=== PATIENT | female | born 1945 | race Caucasian/White ===

== ENCOUNTER 2017-12-15 06:08 | Day surgery (SDC) | payer MEDICARE ==
[~2017-12-15 06:08] MED LIST: Lactated Ringers 1,000 ML IV SCH
[2017-12-15] MEDS ORDERED: Ketamine HCl 50 MG/ML IJ ONE (06:09)
[2017-12-15] MEDS ORDERED: DIPRIVAN 200 MG/20 ML IV ONE (06:09)
[2017-12-15] MEDS ORDERED: Lactated Ringers 1,000 ML IV ONE (06:43)
[2017-12-15] MEDS ORDERED: Xopenex 1.25 MG/0.5 ML UD NEBULE IH ONE (06:54)
[2017-12-15 09:39] VITALS: BP 129/61; PULSE 84; O2SAT 94
--- NOTE | 2017-12-15 14:16 | OP ---
SURGERY DATE/TIME: 12/15/2017729 PREOPERATIVE DIAGNOSIS: Screening exam. POSTOPERATIVE DIAGNOSIS: Chronic sigmoid colitis. PROCEDURE: Colonoscopy. SURGEON: Dr. Milian. ANESTHESIA: MAC. Medications given by anesthesia department. HISTORY: The patient is a 72 year-old white female presenting now for screening colonoscopy. She reports she had a colonoscopy several years ago, more than ten. She was unsure of exactly how long. She reports nothing was found at that time. She has been having no problems. She was felt the need to have screening colonoscopy. The patient was appraised of the risks of the procedure including the risk of perforation, phlebitis, untoward reaction to medication, bleeding and missed lesions. The patient verbalized her understanding and desired to have the procedure performed. DESCRIPTION OF PROCEDURE: The patient was given the medications by the anesthesia department. She had continuous pulse oximetry, ECG monitoring, intermittent blood pressure monitoring and tidal CO2 monitoring during the examination. She was placed in the left lateral decubitus position. A digital rectal examination was performed and revealed normal anal sphincter tone and no masses. The flexible Olympus pediatric colonoscope was used to intubate the rectum. A view of the colon was developed sequentially to the cecum. Upon insertion and withdrawal, it was noted to be a somewhat flattened and narrowed area in the sigmoid colon which was inflamed. No polyps or lesions were otherwise noted however. Upon insertion and withdrawal including retroflex view in the rectum, no polyps were noted. The scope was removed from the patient who tolerated the procedure well and was sent back to OP recovery in good condition. The prep was noted to be fair.
== END 2017-12-15 09:15 | disposition home or self-care (01) ==
LOC: SDC 06:08
PROVIDERS: ATTEND Family Medicine
PROC: 0DJD8ZZ Inspection of Lower Intestinal Tract, Via Natural or Artificial Opening Endoscopic (ICD-10-PCS; principal; 2017-12-15)
DX: Z12.11 Encounter for screening for malignant neoplasm of colon (principal); K52.9 Noninfective gastroenteritis and colitis, unspecified; I10 Essential (primary) hypertension; Z86.73 Personal history of transient ischemic attack (TIA), and cerebral infarction without residual deficits
CPT/HCPCS: 00812; 99100; J2704; A9270-GY

== ENCOUNTER 2019-07-24 09:55 | Emergency (ER) | payer MEDICARE ==
[2019-07-24 10:24] VITALS: O2SAT 97
[2019-07-24] MEDS ORDERED: Sodium Chloride 0.9% 1000 ML 1,000 ML IV SCH (10:30)
--- NOTE | 2019-07-24 10:32 | ERPHSYRPT ---
- History of Present Illness Time Seen by Provider: 07/24/19 10:28 Source: patient Exam Limitations: no limitations Patient Subjective Stated Complaint: pt reports left leg pain for 3-4 days, states pain increased last evening and she was unable to get to bed herself. pt reports she normally has a steady gait and does not require assistance ambulating. 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 Triage Nursing Assessment: pt is aox3, pupils perrl, afebrile, resps easy and non labored, radial pulses strong and equal, cap refill < 3 seconds, pedal pulses strong and equal, pt sensation intact, edema noted to bilat lower extremities with increased edema to the left lower leg. skin is intact. pain localized to the left posterior knee. no obvious injury or deformity noted. Physician History: Ms. Santiago is a 73 years old female reports left leg pain for 3-4 days, states pain increased last evening and she was unable to get to bed herself. pt reports she normally has a steady gait and does not require assistance ambulating. 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 Patient is taking plavix started after having stroke 3 years ago Timing/Duration: day(s) (3-4 days) Associated Symptoms: weakness Allergies/Adverse Reactions: Sulfa (Sulfonamide Antibiotics) Allergy (Severe, Verified 07/24/19 10:24) Rash morphine Adverse Reaction (Severe, Verified 07/24/19 10:24) Vomiting Home Medications: Clopidogrel Bisulfate 75 mg [PLAVIX 75 MG Tablet] 75 mg PO DAILY 09/19/16 [History] Lisinopril 5 mg [Zestril 5 MG] 5 mg PO DAILY 09/19/16 [History] raNITIdine HCl [Zantac] 150 mg PO BID 09/19/16 [History] Calcium/Mag Oxide/Vitamin D3 [Coral Calcium 1,000 mg Cap] 1 each PO DAILY [History] Diphenhydramine HCl 25 mg [Benadryl 25 mg Capsule] 25 mg PO QID 11/12/17 [ History] Ginkgo Biloba 240 mg PO DAILY 12/27/17 [History] Loratadine/Pseudoephedrine [Allergy Relief D 12-Hour Tab] 1 each PO BID [History] Escitalopram Oxalate [Lexapro] 10 mg PO DAILY 12/15/17 [History] Atorvastatin Calcium [Lipitor 20MG Tablet] 20 mg PO DAILY 07/24/19 [History] Hx Tetanus, Diphtheria Vaccination/Date Given: Yes Hx Influenza Vaccination/Date Given: No Hx Pneumococcal Vaccination/Date Given: No Immunizations Up to Date: Yes - Review of Systems Constitutional: Weakness, No Fever, No Chills Eyes: No Symptoms Ears, Nose, & Throat: No Symptoms Respiratory: No Cough, No Dyspnea Cardiac: No Chest Pain, No Edema, No Syncope Abdominal/Gastrointestinal: No Abdominal Pain, No Nausea, No Vomiting, No Diarrhea Genitourinary Symptoms: No Dysuria Musculoskeletal: Other (left calf tenderness, difficulty in walking on left side (affected side due to stroke)), No Back Pain, No Neck Pain Skin: No Rash Neurological: Focal Weakness, No Dizziness, No Sensory Changes Psychological: No Symptoms Endocrine: No Symptoms All Other Systems: Reviewed and Negative - Past Medical History Pertinent Past Medical History: Yes Neurological History: Stroke ENT History: No Pertinent History Cardiac History: Hypertension Respiratory History: COPD Endocrine Medical History: No Pertinent History Musculoskeletal History: Other GI Medical History: GERD, Gallbladder Disease History: No Pertinent History Psycho-Social History: Depression Female Reproductive Disorders: Abnormal Uterine Bleeding Other Medical History: states stroke 2016 - Past Surgical History Past Surgical History: Yes Neuro Surgical History: No Pertinent History Cardiac: No Pertinent History Respiratory: No Pertinent History Gastrointestinal: Cholecystectomy, Hernia Repair, Other Genitourinary: Other Musculoskeletal: No Pertinent History Female Surgical History: Hysterectomy, Tubal Ligation Other Surgical History: stomach stapled, bladder tuck - Social History Smoking Status: Heavy tobacco smoker How long have you smoked: 22years Exposure to second hand smoke: No Drug Use: none Patient Lives Alone: Yes - Female History Hx Now: No - Nursing Vital Signs Nursing Vital Signs: Initial Vital Signs Temperature 97.8 F 07/24/19 09:57 Pulse Rate 82 07/24/19 09:57 Respiratory Rate 20 07/24/19 09:57 Blood Pressure 147/60 07/24/19 09:57 O2 Sat by Pulse Oximetry 97 07/24/19 09:57 Pain Scale Pain Intensity 8 - Physical Exam General Appearance: no apparent distress, alert Eye Exam: PERRL/EOMI, eyes nml inspection Ears, Nose, Throat Exam: normal ENT inspection, TMs normal, pharynx normal, moist mucous membranes Neck Exam: normal inspection, non-tender, supple, full range of motion Respiratory Exam: normal breath sounds, lungs clear, No respiratory distress Cardiovascular Exam: regular rate/rhythm, normal heart sounds, normal peripheral pulses Gastrointestinal/Abdomen Exam: soft, normal bowel sounds, No tenderness, No mass Back Exam: normal inspection, normal range of motion, No CVA tenderness, No vertebral tenderness Extremity Exam: normal inspection, normal range of motion, pelvis stable Neurologic Exam: alert, oriented x 3, cooperative, normal mood/affect, nml cerebellar function, nml station & gait, sensation nml, No motor deficits Skin Exam: normal color, warm, dry, No rash Lymphatic Exam: No adenopathy SpO2 Interpretation: normal SpO2: 97 O2 Delivery: Room Air - Course Nursing assessment & vital signs reviewed: Yes EKG Interpreted by Me: Sinus Rhythm Ordered Tests: Active Orders 24 hr Category Date Time Status Ict Help Desk Officer STAT Care 07/24/19 10:22 Active EKG-ER Only STAT Care 07/24/19 10:21 Active VENOUS UNILAT/LIMITED EXTREMIT [US] Stat Exams 07/24/19 11:22 Taken CBC W DIFF Stat Lab 07/24/19 10:32 Completed CMP Stat Lab 07/24/19 10:32 Completed D-DIMER QUANTITATION Stat Lab 07/24/19 10:32 Completed Lactic Acid Stat Lab 07/24/19 10:21 Completed MAGNESIUM Stat Lab 07/24/19 10:32 Completed Medication Summary Generic Name Dose Route Start Last Admin Trade Name Lexy PRN Reason Stop Dose Admin Sodium Chloride 1,000 mls @ 50 mls/hr 07/24/19 10:30 07/24/19 10:40 Sodium Chloride 0.9% 1000 Ml IV 08/23/19 10:29 50 mls/hr .Q20H BRITTENE Administration Lab/Rad Data: Laboratory Result Diagrams 07/24/19 10:32 07/24/19 10:32 Laboratory Results 07/24/19 07/24/19 07/24/19 Range/Units 10:32 10:32 10:32 WBC 9.2 (4.0-10.5) K/mm3 RBC 4.98 (4.1-5.4) M/mm3 Hgb 14.1 (12.0-16.0) gm/dl Hct 43.2 (35-47) % MCV 86.7 (78-100) fl MCH 28.3 (26-32) pg MCHC 32.6 (32-36) g/dl RDW 15.7 H (11.5-14.0) % Plt Count 181 (150-450) K/mm3 MPV 9.8 H (6-9.5) fl Gran % 62.0 (36.0-66.0) % Eos # (Auto) 0.21 (0-0.5) Absolute Lymphs (auto) 2.26 (1.0-4.6) Absolute Monos (auto) 0.97 (0.0-1.3) Lymphocytes % 24.6 (24.0-44.0) % Monocytes % 10.6 (0.0-12.0) % Eosinophils % 2.3 (0.00-5.0) % Basophils % 0.5 (0.0-0.4) % Absolute Granulocytes 5.70 (1.4-6.9) Basophils # 0.05 (0-0.4) D-Dimer 380 (215-500) ng/mL Sodium 141 (137-145) mmol/L Potassium 4.4 (3.5-5.1) mmol/L Chloride 108 H (98-107) mmol/L Carbon Dioxide 26 (22-30) mmol/L Anion Gap 11.3 (5-15) MEQ/L BUN 14 (7-17) mg/dL Creatinine 0.89 (0.52-1.04) mg/dL Estimated GFR > 60.0 ML/MIN Glucose 78 (74-106) mg/dL Lactic Acid (0.4-2.0) Calcium 9.8 (8.4-10.2) mg/dL Magnesium 2.2 (1.6-2.3) mg/dL Total Bilirubin 0.80 (0.2-1.3) mg/dL AST 24 (14-36) U/L ALT 11 (0-35) U/L Alkaline Phosphatase 82 (38-126) U/L Serum Total Protein 7.0 (6.3-8.2) g/dL Albumin 3.9 (3.5-5.0) g/dL 07/24/19 Range/Units 10:21 WBC (4.0-10.5) K/mm3 RBC (4.1-5.4) M/mm3 Hgb (12.0-16.0) gm/dl Hct (35-47) % MCV (78-100) fl MCH (26-32) pg MCHC (32-36) g/dl RDW (11.5-14.0) % Plt Count (150-450) K/mm3 MPV (6-9.5) fl Gran % (36.0-66.0) % Eos # (Auto) (0-0.5) Absolute Lymphs (auto) (1.0-4.6) Absolute Monos (auto) (0.0-1.3) Lymphocytes % (24.0-44.0) % Monocytes % (0.0-12.0) % Eosinophils % (0.00-5.0) % Basophils % (0.0-0.4) % Absolute Granulocytes (1.4-6.9) Basophils # (0-0.4) D-Dimer (215-500) ng/mL Sodium (137-145) mmol/L Potassium (3.5-5.1) mmol/L Chloride (98-107) mmol/L Carbon Dioxide (22-30) mmol/L Anion Gap (5-15) MEQ/L BUN (7-17) mg/dL Creatinine (0.52-1.04) mg/dL Estimated GFR ML/MIN Glucose (74-106) mg/dL Lactic Acid 1.1 (0.4-2.0) Calcium (8.4-10.2) mg/dL Magnesium (1.6-2.3) mg/dL Total Bilirubin (0.2-1.3) mg/dL AST (14-36) U/L ALT (0-35) U/L Alkaline Phosphatase (38-126) U/L Serum Total Protein (6.3-8.2) g/dL Albumin (3.5-5.0) g/dL Patient left lower extremity venous duplex ultrasound is negative for deep vein thrombosis. All able blood test are also within normal range. - Progress Progress: improved Counseled pt/family regarding: lab results, diagnosis, need for follow-up, rad results - Departure Departure Disposition: Home Clinical Impression: Pain of left calf, History of blood clots Condition: Stable Critical Care Time: Yes Critical Care Time(excluding separately billable procedures): Critical 30-74 mins Referrals: SAVANAH CANCHOLA [Primary Care Provider] - Additional Instructions: Discharge/Care Plan HUNTER SANTIAGO was seen on 07/24/19 in the Emergency Room. The patient was counseled regarding Diagnosis,Lab results, Imaging studies, need for follow up and when to return to the Emergency Room. Prescriptions given: Discharge Note I have spoken with the patient and/or caregivers. I have explained the patient' s condition, diagnosis and treatment plan based on the information available to me at this time. I have answered the patient's and/or caregiver's questions and addressed any concerns. The patient and/or caregivers have as good understanding of the patient's diagnosis, condition and treatment plan as can be expected at this point. The vital signs have been stable. The patient's condition is stable and appropriate for discharge from the emergency department. The patient will pursue further outpatient evaluation with the primary care physician or other designated or consulting physician as outlined in the discharge instructions. The patient and/or caregivers are agreeable to this plan of care and follow-up instructions have been explained in detail. The patient and/or caregivers have received these instruction. The patient/and or caregivers are aware that any significant change in condition or worsening of symptoms should prompt an immediate return to this or the closest emergency department or call 911. HUNTER SANTIAGO was seen on 07/24/19 n the Emergency Room. At that time you were treated for an emergent condition, during your visit Laboratory, Radiology and/or other procedures may have been ordered. It is very important that you follow-up with your Primary Care Physician SAVANAH CANCHOLA within the next 24-48 hours to review your Emergency Room visit and the final results of testing that was ordered. Some test results such as Urine Cultures, Blood Cultures, and other cultures if ordered will not be finalized for 24-48 hours. If you do not have a Primary Care Provider please call the medical records department at [phone] ext [phone] to obtain a copy of your results or you may sign into our patient portal to obtain these results by visiting us @ [email or web address] and completing the following steps: 1. Click on the Patient Portal link 2. Click the Patient Self Enrollment Link to complete the enrollment form and entering your 3. Once the enrollment form is completed you will receive an email with a temporary ID and password at the email address you provided. 4. Next choose a user name and password. Your user name must be at least 4 characters long and your password must be at least 4 characters long. 5. Choose a security question from the list and provide your answer to the question. If you already have signed into the Health Portal you may access your Health Care Information 09/06 by the following steps: 1. Login to our website @ [email or web address] 2. Enter your original user name and password. FAQS The [facility] Health Portal is an online tool that contains your Lab Results, Radiology Reports, Visit History, Discharge Instructions and Health Summary Lab and Radiology Results will not be available for 72 hours on the portal. The Portal is a secure site, passwords are encryted and URLs are re-written so they cannot be copied and pasted. You and authorized family members are the only ones who can access your Portal. Also there is a timeout feature that protects your information if you leave the Portal page open. If you have technical difficulty please use the Contact Us link on the page this will allow you to submit any questions you have regarding the Portal or you may contact the Medical Record Department at [phone]. Prescriptions: Naproxen 375 mg [Naprosyn 375 mg] 375 mg PO Q8H #30 tablet
[2019-07-24] MEDS ORDERED: Sodium Chloride 0.9% 1000 ML 1,000 ML ONE (10:39)
[2019-07-24 10:42] LABS: BASOPHIL % 0.5 % (0.0-0.4); Basophil (Absolute #) 0.05 (0-0.4); Eosinophil % 2.3 % (0.00-5.0); Eosinophil (Absolute #) 0.21 (0-0.5); Hematocrit 43.2 % (35-47); Hemoglobin 14.1 gm/dl (12.0-16.0); Lymphocyte (Absolute #) 2.26 (1.0-4.6); Lymphocytes % 24.6 % (24.0-44.0); Mean Cell Volume 86.7 fl (78-100); Mean Corpuscular Hemoglobin 28.3 pg (26-32); Mean Corpuscular Hgb Concent. 32.6 g/dl (32-36); Mean Platelet Volume 9.8 fl (6-9.5); Monocyte (Absolute #) 0.97 (0.0-1.3); Monocytes % 10.6 % (0.0-12.0); Platelet Count 181 K/mm3 (150-450); Red Blood Count 4.98 M/mm3 (4.1-5.4); Red Cell Distribution Width 15.7 % (11.5-14.0); White Blood Count 9.2 K/mm3 (4.0-10.5)
[2019-07-24 10:52] LABS: ALBUMIN 3.9 g/dL (3.5-5.0); ALKALINE PHOSPHATASE 82 U/L (38-126); ANION GAP 11.3 MEQ/L (5-15); BLOOD UREA NITROGEN 14 mg/dL (7-17); CHLORIDE 108 mmol/L (98-107); Calcium 9.8 mg/dL (8.4-10.2); Carbon Dioxide 26 mmol/L (22-30); Creatinine 1 0.89 mg/dL (0.52-1.04); Glucose 78 mg/dL (74-106); MAGNESIUM 2.2 mg/dL (1.6-2.3); Potassium 4.4 mmol/L (3.5-5.1); SGOT/AST 24 U/L (14-36); SGPT/ALT 11 U/L (0-35); SODIUM 141 mmol/L (137-145)
[2019-07-24] MEDS ORDERED: TORAdol 30 mg Injection IV ONE (11:29)
[2019-07-24] MEDS ORDERED: TORAdol 30 mg Injection ONE (12:06)
[2019-07-24 12:34] VITALS: BP 116/64; PULSE 66
--- NOTE | 2019-07-24 19:02 | XRAY ---
Indication: Calf tenderness. 2-dimensional sonogram and color Doppler imaging of the major venous vessels of the left leg was performed. Comparison: None No thrombus seen in the examined deep venous vessels of the left leg including greater saphenous vein. Veins demonstrate normal compressibility. Venous waveforms are normal with and without augmentation. Impression: Left leg negative for DVT. Comment: Preliminary report was given.
== END 2019-07-24 12:33 | disposition home or self-care (01) ==
LOC: ED 09:55
DX: M79.662 Pain in left lower leg (principal); Z86.718 Personal history of other venous thrombosis and embolism; Z79.899 Other long term (current) drug therapy; I10 Essential (primary) hypertension; J44.9 Chronic obstructive pulmonary disease, unspecified; K21.9 Gastro-esophageal reflux disease without esophagitis; F32.9 Major depressive disorder, single episode, unspecified
CPT/HCPCS: 36415; 80053; 83605; 83735; 85025; 85379; 93005; 93041; 93971; 96360; 96361; 96374; 99284; 99291; J1885

== ENCOUNTER 2019-07-26 15:58 | Observation (INO) | payer MEDICARE ==
--- NOTE | 2019-07-26 16:19 | ERPHSYRPT ---
- History of Present Illness Time Seen by Provider: 07/26/19 16:14 Source: patient, EMS Exam Limitations: no limitations Patient Subjective Stated Complaint: pt reports she is unable to bear weight on her left leg. pt reports severe pain when she attempts ambulation. pt seen 07/24 at this facility and evaluated for DVT which was negative. pt was discharged where she resides in a motor home near her son, pt reports that she had much difficulty making it up the steps at that time. pt denies any injury or accident at this time. pt reports at rest she has no pain. pt reports chronic weakness to left upper and lower extremities r/t a previous stroke. Triage Nursing Assessment: pt is aox3, pupils perrl, afebrile, resps easy and non laobred, radial pulses strong and equal, cap refill < 3 seconds, pt skin pink warm dry. pedal pulses strong equal bilat,slight non pitting edema noted to bilat lower extermities, increased on the left side. pt skin is intact. Physician History: 73 y/o white female s/p cva 2016 with residual left upper and lower ext weakness and swelling, presents again to this ED for same issue of left lower ext pain. specifically today pt states pain is posteriorly lower femur. pt states no acute injury. up until 5 days ago, pt had a steady gait and did not require assistance to ambulate. now pt is unable to ambulate on her own secondary to pain. left leg feels as though it is going to give out when she attempts ambulation on her own. pt was seen here on two occasion 07/24/19. lab work up and left lower ext u/s negative for acute findings. per [facility], this is an [facility] pt. 2 weeks ago, pt dismissed [facility] stated the patient no longer wanted their services. Method of Injury: other (no injury) Occurred: days ago (4 to 5) Quality: aching Severity of Pain-Max: moderate Severity of Pain-Current: moderate Lower Extremities Pain: knee: left (posteriorly) Modifying Factors: Improves With: movement, other (weight bearing) Associated Symptoms: unable to bear weight Allergies/Adverse Reactions: Sulfa (Sulfonamide Antibiotics) Allergy (Severe, Verified 07/26/19 16:14) Rash morphine Adverse Reaction (Severe, Verified 07/26/19 16:14) Vomiting Home Medications: Clopidogrel Bisulfate 75 mg [PLAVIX 75 MG Tablet] 75 mg PO DAILY 09/19/16 [History] Lisinopril 5 mg [Zestril 5 MG] 5 mg PO DAILY 09/19/16 [History] raNITIdine HCl [Zantac] 150 mg PO BID 09/19/16 [History] Calcium/Mag Oxide/Vitamin D3 [Coral Calcium 1,000 mg Cap] 1 each PO DAILY [History] Diphenhydramine HCl 25 mg [Benadryl 25 mg Capsule] 25 mg PO QID 11/12/17 [ History] Ginkgo Biloba 240 mg PO DAILY 11/12/17 [History] Loratadine/Pseudoephedrine [Allergy Relief D 12-Hour Tab] 1 each PO BID [History] Escitalopram Oxalate [Lexapro] 10 mg PO DAILY 12/15/17 [History] Atorvastatin Calcium [Lipitor 20MG Tablet] 20 mg PO DAILY 07/24/19 [History] Hx Tetanus, Diphtheria Vaccination/Date Given: Yes Hx Influenza Vaccination/Date Given: No Hx Pneumococcal Vaccination/Date Given: No Immunizations Up to Date: Yes - Review of Systems Constitutional: No Symptoms Eyes: No Symptoms Ears, Nose, & Throat: No Symptoms Respiratory: No Symptoms Cardiac: No Symptoms Abdominal/Gastrointestinal: No Symptoms Genitourinary Symptoms: No Symptoms Musculoskeletal: Other (left lower leg pain) Skin: No Symptoms Neurological: No Symptoms Psychological: No Symptoms Endocrine: No Symptoms Hematologic/Lymphatic: No Symptoms Immunological/Allergic: No Symptoms All Other Systems: Reviewed and Negative - Past Medical History Pertinent Past Medical History: Yes Neurological History: Stroke ENT History: No Pertinent History Cardiac History: Hypertension Respiratory History: COPD Endocrine Medical History: No Pertinent History Musculoskeletal History: Other GI Medical History: GERD, Gallbladder Disease History: No Pertinent History Psycho-Social History: Depression Female Reproductive Disorders: Abnormal Uterine Bleeding Other Medical History: states stroke 2015 - Past Surgical History Past Surgical History: Yes Neuro Surgical History: No Pertinent History Cardiac: No Pertinent History Respiratory: No Pertinent History Gastrointestinal: Cholecystectomy, Hernia Repair, Other Genitourinary: Other Musculoskeletal: No Pertinent History Female Surgical History: Hysterectomy, Tubal Ligation Other Surgical History: stomach stapled, bladder tuck - Social History Smoking Status: Heavy tobacco smoker How long have you smoked: 22years Exposure to second hand smoke: No Drug Use: none Patient Lives Alone: Yes - Female History Hx Now: No - Nursing Vital Signs Nursing Vital Signs: Initial Vital Signs Temperature 97.9 F 07/26/19 16:03 Pulse Rate 77 07/26/19 16:03 Respiratory Rate 20 07/26/19 16:03 Blood Pressure 126/73 07/26/19 16:03 O2 Sat by Pulse Oximetry 94 L 07/26/19 16:03 Pain Scale Pain Intensity 0 - Physical Exam General Appearance: no apparent distress, alert, anxiety Eyes, Ears, Nose, Throat Exam: normal ENT inspection, moist mucous membranes Neck Exam: normal inspection, non-tender, supple, full range of motion Cardiovascular/Respiratory Exam: normal breath sounds, regular rate/rhythm, heart sounds normal, No chest non-tender Gastrointestinal/Abdominal Exam: non-tender, soft Back Exam: normal inspection, normal range of motion, No CVA tenderness, No vertebral tenderness Hips Exam: bilateral: non-tender, normal inspection, normal range of motion, no evidence of injury Legs Exam: bilateral leg: non-tender, normal inspection, normal range of motion , no evidence of injury Knees Exam: left knee: soft tissue tenderness (post fossa), swelling (chronic), bilateral knee: normal inspection, normal range of motion, no evidence of injury Ankle Exam: bilateral ankle: non-tender, normal inspection, normal range of motion, no evidence of injury Foot Exam: bilateral foot: non-tender, normal inspection, normal range of motion , no evidence of injury Neuro/Tendon Exam: normal sensation, normal motor functions, normal tendon functions, responds to pain Mental Status Exam: alert, oriented x 3, cooperative Skin Exam: normal color, warm, dry SpO2 Interpretation: borderline oxygenation SpO2: 94 O2 Delivery: Room Air Ordered Tests: Active Orders 24 hr Category Date Time Status IV Insertion STAT Care 07/26/19 17:41 Active FEMUR Stat Exams 07/26/19 16:33 Completed KNEE (1 OR 2 VIEW) Stat Exams 07/26/19 16:33 Completed LOWER LEG Stat Exams 07/26/19 16:33 Completed Transfer Order Routine Transfer 07/26/19 Ordered - Progress Progress: improved, pain not gone completely, re-examined Progress Note: 07/26/19 17:38 xray left femur, knee and lower leg-no acute fx or dislocation. ?permeative bone patter within condylar region of distal left femur. radionuclide bone scan may be helpful. spoke with dr. willson. ok for placement into observation. social service consult, pain control. Discussed with : Jung Counseled pt/family regarding: diagnosis, rad results - Departure Departure Disposition: Observation Clinical Impression: Intractable neuropathic pain of left lower extremity, Unable to ambulate Condition: Stable Critical Care Time: No Referrals: SAVANAH WILLSON [Primary Care Provider] -
--- NOTE | 2019-07-26 17:32 | XRAY ---
See left femur report from 07/26/2019 which included the report of the left knee from the same day.
--- NOTE | 2019-07-26 17:34 | XRAY ---
Exam: Left femur films and left knee was from 07/26/2019. Comparison: None. Indication: 73-year-old female with known injury, patient unable to ambulate due to pain in left leg, particularly behind left knee and proximal left lower leg. Findings: AP and lateral films of the left hip and majority of the left femoral shaft were obtained. In addition, AP and lateral images centered over the left knee including the distal 40% of the left femur were obtained. I see no fracture or dislocation. The left hip joint space appears unremarkable. The left knee joint space is well-preserved. I believe there is some mild narrowing of the patellofemoral joint. No suprapatellar joint effusion is seen. There is a question of some focal radiolucency overlying the condylar region of the distal left femur on the lateral image and the most proximal aspect of the left tibia, although I see no cortical disruption. In light of the patient's pain, further evaluation with radionuclide bone scan may be helpful. Impression: 1. Questionable permeative bone pattern within the condylar region of the distal left femur and proximal portion of the left tibia. Consider further evaluation with a radionuclide bone scan in light of the patient's pain. 2. No acute fracture or dislocation of the left femur or left knee is seen. 3. Mild osteoarthritis affecting the patellofemoral joint of the left knee.
--- NOTE | 2019-07-26 17:37 | XRAY ---
Exam: Two-view left lower leg series from 07/26/2019. Comparison: Two-view left knee series from 07/26/2019. Indication: 73-year-old female with no known injury, complains of pain posterior to left knee and within proximal left lower leg, unable to ambulate. Findings: AP and 2 lateral images of the left lower leg were obtained. Also, the AP and lateral images of the left knee centered at the knee joint were reviewed. I see no acute fracture. Prior suspicious radiolucency overlying the proximal left tibia is less convincing on the left lower leg films. The left ankle mortise is preserved. No obvious cortical bone destruction is seen. No soft tissue foreign body is seen. Impression: 1. No acute fracture is seen within the left lower leg. See above. Note: I would still strongly consider correlation with a radionuclide bone scan, as suggested in the left femur report from today on this patient.
[2019-07-26] MEDS ORDERED: Pepcid 20 MG VIAL IV ONE ×2 (17:49→17:55)
[2019-07-26] MEDS ORDERED: Zofran 4 MG/2 ML VIAL IV PRN (18:35)
[2019-07-26] MEDS ORDERED: DEMEROL 25MG SYRINGE IV PRN (18:35)
[2019-07-26] MEDS ORDERED: DEMEROL 50 MG ONE (19:27)
[2019-07-26] MEDS: TYLENOL 325 MG PO PRN (22:26)
[2019-07-26 23:04] LABS: Appearance CLEAR (CLEAR); Bacteria RARE /HPF (NEGATIVE); Bilirubin NEGATIVE (NEGATIVE); Blood NEGATIVE Ery/ul (0-5); Epithelial Cells FEW /HPF (FEW); Glucose NEGATIVE (NEGATIVE); Ketones NEGATIVE (NEGATIVE); Leukocyte Esterase NEGATIVE (NEGATIVE); Mucus SLIGHT /HPF (NEGATIVE); Nitrite NEGATIVE (NEGATIVE); Protein,Urine Dip NEGATIVE (Negative); Specific Gravity 1.006 (1.005-1.025); Urobilinogen NEGATIVE mg/dL (0-1); WBC 0-2 /HPF (0-5)
[2019-07-27] MEDS: TYLENOL 325 MG PO PRN (03:05)
[2019-07-27] MEDS: Sodium Chloride 0.9% 1000 ML 1,000 ML IV SCH (03:16)
[2019-07-27] MEDS ORDERED: Voltaren GEL TOP PRN (07:37)
[2019-07-27] MEDS ORDERED: Tums EX 750 MG PO PRN (08:10)
[2019-07-27] MEDS ORDERED: MEDICATION INTERVENTION PO SCH (08:15)
[2019-07-27] MEDS: Calcium 500MG W/Vit D Tablet PO SCH (09:06)
[2019-07-27] MEDS: BENADRYL 25 MG CAPSULE PO SCH ×4 (09:06→21:00)
[2019-07-27] MEDS: Lexapro 10 MG PO SCH (09:06)
[2019-07-27] MEDS: PLAVIX 75 MG Tablet PO SCH (09:08)
[2019-07-27] MEDS: Protonix 40MG Tablet PO SCH (09:08)
[2019-07-27] MEDS: Pepcid 20 MG PO SCH ×2 (09:08→21:00)
[2019-07-27] MEDS: Zestril 5 MG PO SCH (09:09)
[2019-07-27] MEDS: ZOCOR 20MG PO SCH (09:09)
[2019-07-27] MEDS ORDERED: VITAMIN D3 PO SCH (10:00)
[2019-07-27] MEDS ORDERED: NON-FORMULARY ITEM (Atorvastatin Calcium 20 MG) PO SCH (10:00)
[2019-07-27] MEDS ORDERED: NON-FORMULARY ITEM (Ranitidine Hcl [Zantac] 150 MG) PO SCH (10:00)
[2019-07-27] MEDS ORDERED: MAG OXIDE PO SCH (10:00)
[2019-07-27] MEDS ORDERED: CHOLECALCIFEROL 25 MG PO SCH (10:00)
[2019-07-27] MEDS ORDERED: CALCIUM PO SCH (10:00)
--- NOTE | 2019-07-27 10:35 | HP ---
CHIEF COMPLAINT: Pain behind the left knee in the insertion are of the hamstrings. HISTORY OF PRESENT ILLNESS: The patient reports no recalled injury. 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 The patient reports she is now unable to ambulate due to the pain. She has been in the hospital now in the Emergency Room for the 3rd time yesterday which we then admitted her as apparently they are unable to care for her in the home. The patient does live with her son at home, but he works and she is by herself for several hours at home and currently unable to care for herself. PAST MEDICAL HISTORY: The patient's medical history is otherwise significant for hypertension, depression, and hyperlipidemia. PAST SURGICAL HISTORY: She has previously had a cholecystectomy, a hernia repair, hysterectomy, tubal ligation, stomach staple, and bladder tuck. HOME MEDICATIONS: Plavix 75 mg daily, lisinopril 5 mg daily, ranitidine 150 mg bid, calcium with vitamin D caplets, Benadryl PRN, ginkgo biloba, loratadine, pseudoephedrine bid, Lexapro 10 mg q day, and atorvastatin 20 mg q day. ALLERGIES: HER ALLERGIES REPORTED ARE TO SULFA AND MORPHINE. PHYSICAL EXAMINATION: HEENT: Normocephalic, atraumatic. Pupils equal, round, and reactive to light. Extraocular movements intact. Oropharynx is pink and moist. NECK: Supple without lymphadenopathy, thyromegaly, or JVD. CHEST: Clear to auscultation. HEART: Regular rate and rhythm. ABDOMEN: Soft without palpable masses. EXTREMITIES: Reveals the tenderness behind the left knee. No obvious Mitchell's cyst was felt. There is no warmth or redness. There is no significant cyanosis, clubbing, or edema. NEURO: The patient shows the focal deficits on the left side which is chronic. No new changes. She is alert and oriented X 3. VITAL SIGNS ON ADMISSION: Showed a temperature of 97.9, pulse 77, respiratory rate 20, BP 126/73, O2 sat 94%. The patient's x-rays showed no acute factors seen within the lower leg. There was some concern that the radiologist felt that this is not entirely normal and was suggesting possible bone scan or MRI due to the patient's amount of pain. The patient had previously had labs performed which were normal and was not repeated on this visit due to the recent labs otherwise. ASSESSMENT AND PLAN: The patient is now in and we will ice the knee and use Voltaren gel and obtain a PT consult pending further evaluation of the leg with MRI or a bone scan.
[2019-07-27] MEDS: Nicoderm CQ 21 MG TOP SCH (14:58)
--- NOTE | 2019-07-27 17:32 | XRAY ---
Exam: MRI of the left knee without IV contrast from 07/27/2019. Comparison: Two-view view left knee series from 07/26/2019. Indication: 73-year-old female with left knee pain since 07/23/2019, unable to ambulate on left leg, no known injury. Technique: Multiplanar, multisequence MR imaging of the left knee was obtained without IV contrast per routine. The exam was centered about the left knee. Findings: Within the patellofemoral compartment, there is extensive cartilage loss of the upper medial patellar facet, moderate cartilage loss of the central femoral trochlea, with mild patellar subchondral bone signal changes. A moderate left knee joint effusion is seen. A superior synovial plica is seen protruding into the suprapatellar recess of the knee joint. Clinical correlation for any associated symptomatology is recommended. The femoral-tibial compartments appear unremarkable. Occasional motion artifact is seen, particularly on the coronal images (series 900). The medical technologist clinical stated that the patient had difficulty holding still. The extensor mechanism including the distal quadriceps tendon and patellar tendon appear of normal signal intensity and morphology. No tear is seen. Both the medial meniscus and lateral meniscus appear unremarkable without tear. The medial capsule/supporting structures and lateral capsule/supporting structures appear unremarkable without tear. Both the anterior cruciate ligament and posterior cruciate ligaments appear unremarkable without tear. I see no bone marrow changes to suggest bone destruction. Therefore, the subtle radiolucency about the left knee on yesterday's plain films is apparently due to demineralization or osteoporosis. There is mildly increased signal present in the anterior compartment musculature and soleus at the level of the fibular head, best seen on the axial images. Correlate clinically regarding low-grade muscular strain symptomatology. Also, the soft tissues reveals some mild subcutaneous edema along the posterior medial aspect of the left knee. Impression: 1. Patellofemoral chondromalacia. 2. Moderate left knee joint effusion. There is also a superior synovial plica protruding into the suprapatellar recess of the left knee joint. Clinical correlation for any associated symptomatology is recommended. 3. No space-occupying bone marrow lesion/bone destruction is seen. 4. Mildly increased signal is present within the anterior compartment musculature and soleus at the level of the fibular head, best seen on axial images. Clinical correlation regarding possible low-grade muscular strain symptomatology is recommended. 5. Occasional mild motion artifact.
[2019-07-27] MEDS: DEMEROL 50 MG IV PRN (20:41)
[2019-07-28] MEDS: BENADRYL 25 MG CAPSULE PO SCH ×4 (09:34→21:10)
[2019-07-28] MEDS: PLAVIX 75 MG Tablet PO SCH (09:34)
[2019-07-28] MEDS: Lexapro 10 MG PO SCH (09:34)
[2019-07-28] MEDS: Pepcid 20 MG PO SCH ×2 (09:35→21:10)
[2019-07-28] MEDS: Nicoderm CQ 21 MG TOP SCH ×2 (09:35→17:45)
[2019-07-28] MEDS: Zestril 5 MG PO SCH (09:35)
[2019-07-28] MEDS: Calcium 500MG W/Vit D Tablet PO SCH (09:35)
[2019-07-28] MEDS: Protonix 40MG Tablet PO SCH (09:35)
[2019-07-28] MEDS: ZOCOR 20MG PO SCH (09:35)
[2019-07-28] MEDS: DEMEROL 50 MG IV PRN (20:08)
[2019-07-29] MEDS: DEMEROL 50 MG IV PRN (04:16)
[2019-07-29] MEDS: Sodium Chloride 0.9% 1000 ML 1,000 ML IV SCH (07:43)
[2019-07-29] MEDS: PLAVIX 75 MG Tablet PO SCH (09:00)
[2019-07-29] MEDS: Protonix 40MG Tablet PO SCH (09:00)
[2019-07-29] MEDS: Pepcid 20 MG PO SCH (09:00)
[2019-07-29] MEDS: Lexapro 10 MG PO SCH (09:00)
[2019-07-29] MEDS: BENADRYL 25 MG CAPSULE PO SCH (09:00)
[2019-07-29] MEDS: Zestril 5 MG PO SCH (09:00)
[2019-07-29] MEDS: ZOCOR 20MG PO SCH (09:00)
[2019-07-29] MEDS: Calcium 500MG W/Vit D Tablet PO SCH (09:01)
[2019-07-29] MEDS: Nicoderm CQ 21 MG TOP SCH (09:02)
--- NOTE | 2019-07-29 09:45 | PCM.DS ---
Discharge Summary Date of Admission: 07/26/19 18:29 Admitting Physician: SAVANAH MILIAN Primary Care Provider: SAVANAH MILIAN Allergies Allergies Sulfa (Sulfonamide Antibiotics) Allergy (Severe, Verified 07/26/19 16:14) Rash morphine Adverse Reaction (Severe, Verified 07/26/19 16:14) Vomiting Hospital Summary - Hospital Course Hospital Course: Pt is 73 yo female pt of Dr. Milian with depression, HTN, hx CVA with L sided deficit, memory issues, and hyperlipidemia who was admitted after multiple ER visits for LLE pain. She was found neg for DVT with neg XR and MRI. She has 8- 9/10 pain with standing on the leg. No pain at rest. Pain is posterior to L knee and distal lateral thigh, approx 5cm proximal to the knee (at times with palpation). She has been receiving voltaren gel and PT. The plan initially was to send her to [place] for therapy but her insurance will not approve it. She does have to have assistance to get up. Pt does live alone although she has family close. She has home health set up. She will be discharged to home and will have an appt with Dr. Hamilton this afternoon at 1:30. Someone from hospital is to call Dr. Hamilton's office after this visit to f/u. She will plan to see Dr. Milian in 1 week. - Vitals & Intake/Output Vital Signs: Vital Signs Temperature 97.8 F 07/29/19 08:00 Pulse Rate 64 07/29/19 08:00 Respiratory Rate 19 07/29/19 08:00 Blood Pressure 126/58 07/29/19 08:00 O2 Sat by Pulse Oximetry 95 07/29/19 08:00 Intake & Output: Intake & Output 07/26/19 07/27/19 07/28/19 07/29/19 11:59 11:59 11:59 11:59 Intake Total 1020 2833 1500 Output Total 300 Balance 720 2833 1500 Weight 61.5 kg 61 kg - Procedures and Test Procedures and Tests throughout Hospitalization: Therapy Orders & Screens 07/26/19 18:35 PT Eval & Treat ( Order) Reason for Eval:: left leg pain, transfer, mobility, stamina Diagnosis: left leg pain Discharge Exam General Appearance: no apparent distress, alert Neurologic Exam: cooperative, other (decreased affect) Eye Exam: eyes nml inspection Ears, Nose, Throat Exam: moist mucous membranes Neck Exam: normal inspection Respiratory Exam: normal breath sounds, lungs clear, No crackles/rales, No rhonchi, No wheezing Cardiovascular Exam: regular rate/rhythm, normal heart sounds, No murmur Extremity Exam: other (LLE mild edema. There is mild ttp distal L lateral thigh. posterior knee is nttp. No erythema or lesions throughout.) Skin Exam: normal color, warm, dry, No rash Final Diagnosis/Problem List - Final Discharge Diagnosis/Problem (1) Intractable neuropathic pain of left lower extremity Current Visit: Yes Status: Acute Assessment & Plan: MRI did show a superior synovial plica protruding into the suprapatellar recess of the left knee joint - she is seeing Dr. Hamilton today to see if this is the cause of her pain and what the next step will be. Code(s): M79.2 - NEURALGIA AND NEURITIS, UNSPECIFIED - Discharge Disposition: Home, Self-Care Condition: Stable Prescriptions: New Diclofenac Sodium Gel [Voltaren GEL] 1 gm TOP QID PRN PRN #1 gel..gm. PRN Reason: Pain Continue raNITIdine HCl [Zantac] 150 mg PO BID Lisinopril 5 mg [Zestril 5 MG] 5 mg PO DAILY Clopidogrel Bisulfate 75 mg [PLAVIX 75 MG Tablet] 75 mg PO DAILY Diphenhydramine HCl 25 mg [Benadryl 25 mg Capsule] 25 mg PO QID Ginkgo Biloba 120 mg PO BID Calcium/Mag Oxide/Vitamin D3 [Coral Calcium 1,000 mg Cap] 1 each PO DAILY Escitalopram Oxalate [Lexapro] 5 mg PO DAILY Atorvastatin Calcium [Lipitor 20MG Tablet] 20 mg PO DAILY Cholecalciferol (Vitamin D3) [Vitamin D] 25 mg PO DAILY Instructions: Chronic Knee Pain (DC) Additional Instructions: [facility] WILL CONTACT YOU TO SET UP FIRST HOME APPOINTMENT. YOU CAN CALL THEM AT [phone] FOR ANY QUESTIONS OR CONCERNS. Follow up with: SAVANAH MILIAN [Primary Care Provider] - 08/05/19 9:45 am ORESTES HAMILTON [ACTIVE STAFF] - 07/29/19 1:30 pm (at [facility] )
[2019-07-29 12:05] VITALS: BP 152/68; PULSE 57; O2SAT 94
== END 2019-07-29 11:55 | disposition home health service (06) ==
LOC: ED 15:58 → MED SURG 18:29
PROVIDERS: ADMIT Family Medicine; ATTEND Family Medicine
DX: M79.2 Neuralgia and neuritis, unspecified (principal); M79.605 Pain in left leg; I10 Essential (primary) hypertension; E78.5 Hyperlipidemia, unspecified; I69.354 Hemiplegia and hemiparesis following cerebral infarction affecting left non-dominant side; F32.9 Major depressive disorder, single episode, unspecified; I69.311 Memory deficit following cerebral infarction; Z79.01 Long term (current) use of anticoagulants; Z79.899 Other long term (current) drug therapy
CPT/HCPCS: 36000; 73552; 73560; 73590; 73721; 81001; 96374; 97161; 97530; 99285; G0378; J2175; A9270-GY

== ENCOUNTER 2022-03-22 20:12 | Emergency (ER) | payer MEDICARE ==
[2022-03-22 21:35] LABS: Absolute Neutrophil Ct (ANC) 7.35 (1.4-6.9); Basophil (Absolute #) 0.04 (0-0.4); Eosinophil % 1.2 % (0.00-5.0); Eosinophil (Absolute #) 0.11 (0-0.5); Hemoglobin 14.7 gm/dl (12.0-16.0); Lymphocyte (Absolute #) 1.16 (1.0-4.6); Lymphocytes % 12.7 % (24.0-44.0); Mean Cell Volume 89.6 fl (78-100); Mean Corpuscular Hemoglobin 29.3 pg (26-32); Mean Corpuscular Hgb Concent. 32.7 g/dl (32-36); Mean Platelet Volume 10.2 fl (7.5-11.0); Monocyte (Absolute #) 0.46 (0.0-1.3); Neutrophil % 80.7 % (36.0-66.0); Platelet Count 223 K/mm3 (150-450); Red Blood Count 5.02 M/mm3 (4.1-5.4); White Blood Count 9.1 K/mm3 (4.0-10.5)
[2022-03-22 21:49] VITALS: O2SAT 99
--- NOTE | 2022-03-22 22:08 | XRAY ---
Indication: Short of breath. Comparison: September 19, 2016. Portable chest remains clear. Heart not enlarged with stable left hilar calcified node. Bony thorax intact again with mild osteopenia and degenerative changes. Impression: Continued nonacute chest with chronic features.
[2022-03-22 22:40] LABS: ALBUMIN 3.9 g/dL (3.5-5.0); BILIRUBIN,TOTAL 0.7 mg/dL (0.2-1.3); Calcium 9.5 mg/dL (8.4-10.2); Creatinine 1 1.19 mg/dL (0.52-1.04); EST GLOMERULAR FILTRATION RATE 46.9 ML/MIN; Potassium 3.9 mmol/L (3.5-5.1); Total Protein 6.5 g/dL (6.3-8.2)
[2022-03-22 22:45] LABS: INFLUENZA A NEGATIVE (NEGATIVE); INFLUENZA B NEGATIVE (NEGATIVE); RESPIRATORY SYNCTIAL VIRUS NEGATIVE (Negative); SARS-CoV-2 Xpert Express NEGATIVE (NEGATIVE)
--- NOTE | 2022-03-22 23:00 | ERPHSYRPT ---
- History of Present Illness Time Seen by Provider: 03/22/22 20:40 Source: patient, EMS Exam Limitations: no limitations Patient Subjective Stated Complaint: pt states "I have had trouble breathing and its making me weak." Triage Nursing Assessment: pt came into the er via ambulance; pt is axo x4; c/o SOB; pt states 4/10 pain to left arm due to skin tear; pt is SOB; tachypnea; jonelle wheezing in all lobes posterior and anterior; pitting edema to LLE; pt states productive cough; moist cough present; tachycardic; c/o chills Physician History: This is a 76-year-old white female patient of Dr. Milian who presented to the emergency department via EMS for complaints of weakness that started 1 to 2 hours prior to arrival to the emergency department. Patient states that he has felt well all day but then noticed increased weakness (generalized). She denies chest pain. She denies shortness of breath to me at the time of this examination but she stated that she was a little short of breath prior to arrival. Patient denies abdominal pain. She is had no nausea vomiting or diarrhea. She has a history of hypertension, elevated cholesterol, depression, gastroesophageal reflux disease. Patient had a CVA in 2016 and has chronic left-sided residual weakness/decreased function. This includes both her left side upper and lower extremities. Patient denies headache. She has no history of coronary artery disease. Patient is a daily smoker of cigarettes. Timing/Duration: today Activities at Onset: none Severity of Dyspnea-Max: mild Severity of Dyspnea-Current: mild Possible Cause: occasional episodes Modifying Factors: Improves With: nothing Associated Symptoms: weakness, No chest pain/discomfort, No wheezing Allergies/Adverse Reactions: Sulfa (Sulfonamide Antibiotics) Allergy (Severe, Verified 03/22/22 20:20) Rash morphine Adverse Reaction (Severe, Verified 03/22/22 20:20) Vomiting Home Medications: Lisinopril 5 mg [Zestril 5 MG] 5 mg PO DAILY 09/19/16 [History] Calcium/Mag Oxide/Vitamin D3 [Coral Calcium 1,000 mg Cap] 1 each PO DAILY 11/12/17 [History] Diphenhydramine HCl 25 mg [Benadryl 25 mg Capsule] 25 mg PO QID 11/12/17 [History] Ginkgo Biloba 120 mg PO BID 11/12/17 [History] Atorvastatin Calcium [Lipitor 20MG Tablet] 20 mg PO DAILY 07/24/19 [History] Cholecalciferol (Vitamin D3) [Vitamin D] 25 mg PO DAILY 07/26/19 [History] Meclizine HCl 25 mg [Antivert 25 mg] 25 mg PO TID 03/22/22 [History] Hx Tetanus, Diphtheria Vaccination/Date Given: Yes Hx Influenza Vaccination/Date Given: No Hx Pneumococcal Vaccination/Date Given: No Travel Risk - International Travel Have you traveled outside of the country in past 3 weeks: No - Coronavirus Screening Are you exhibiting any of the following symptoms?: Yes Symptoms: Shortness of Breath - Vaccine Status Have you recieved a Covid-19 vaccination: No - Review of Systems Constitutional: Weakness Eyes: No Symptoms Ears, Nose, & Throat: No Symptoms Respiratory: No Symptoms Cardiac: No Symptoms Abdominal/Gastrointestinal: No Symptoms Genitourinary Symptoms: No Symptoms Musculoskeletal: No Symptoms Skin: No Symptoms Neurological: No Symptoms Psychological: No Symptoms Endocrine: No Symptoms Hematologic/Lymphatic: No Symptoms Immunological/Allergic: No Symptoms All Other Systems: Reviewed and Negative - Past Medical History Pertinent Past Medical History: Yes Neurological History: Stroke ENT History: No Pertinent History Cardiac History: Hypertension Respiratory History: No Pertinent History Endocrine Medical History: No Pertinent History Musculoskeletal History: Other GI Medical History: GERD, Gallbladder Disease History: No Pertinent History Psycho-Social History: Depression Female Reproductive Disorders: No Pertinent History Other Medical History: states stroke 2016, left sided weakness - Past Surgical History Past Surgical History: Yes Neuro Surgical History: No Pertinent History Cardiac: No Pertinent History Respiratory: No Pertinent History Gastrointestinal: Appendectomy, Cholecystectomy, Hernia Repair, Other Genitourinary: Other Musculoskeletal: No Pertinent History Female Surgical History: Hysterectomy, Tubal Ligation Other Surgical History: stomach stapled, bladder tuck, gastric bypass - Social History Smoking Status: Current every day smoker How long have you smoked: 22years Exposure to second hand smoke: No Drug Use: none Patient Lives Alone: Yes - Nursing Vital Signs Nursing Vital Signs: Initial Vital Signs Temperature 98.5 F 03/22/22 20:26 Pulse Rate 103 H 03/22/22 20:26 Respiratory Rate 28 H 03/22/22 20:26 Blood Pressure 99/67 03/22/22 20:26 O2 Sat by Pulse Oximetry 100 03/22/22 20:26 Pain Scale Pain Intensity 2 - Physical Exam General Appearance: no apparent distress, alert, anxiety Eye Exam: PERRL/EOMI, eyes nml inspection Ears, Nose, Throat Exam: hearing grossly normal, normal ENT inspection, normal pharynx Neck Exam: normal inspection, non-tender, supple, full range of motion Respiratory Exam: normal breath sounds, lungs clear, airway intact, No chest tenderness, No respiratory distress Cardiovascular/Chest Exam: normal heart sounds, tachycardia Abdominal/Gastrointestinal Exam: soft, normal bowel sounds, No tenderness Rectal Exam: not done Extremity Exam: non-tender (Patient has chronic left upper extremity and left lower extremity weakness with decreased range of motion and function secondary to a CVA in 2016), no calf tenderness, no pedal edema, pelvis stable Neurologic Exam: alert, oriented x 3, cooperative, normal mood/affect, motor deficits (Left upper and lower extremitychronic secondary to 2016 CVA) Skin Exam: normal color, warm, dry Lymphatic Exam: No adenopathy SpO2 Interpretation: normal SpO2: 99 O2 Delivery: Room Air - Course Nursing assessment & vital signs reviewed: Yes EKG Interpreted by Me: RATE (108), Sinus Tach, NORMAL AXIS, NORMAL INTERVALS, NORMAL QRS, NORMAL ST-T, Other (No acute ischemic changes. When compared to the EKG dated 07/24/2019, there is new mild sinus tachycardia present on today's EKG) Ordered Tests: Active Orders 24 hr Category Date Time Status CHEST 1 VIEW (PORTABLE) Stat Exams 03/22/22 20:56 Completed CBC W DIFF Stat Lab 03/22/22 21:31 Completed CMP Stat Lab 03/22/22 21:31 Completed CULTURE,URINE Stat Lab 03/23/22 00:00 Received D-DIMER QUANTITATIVE Stat Lab 03/22/22 21:31 Completed UA W/RFX CULTURE Stat Lab 03/23/22 00:00 Completed Lab/Rad Data: Laboratory Result Diagrams 03/22/22 21:31 03/22/22 21:31 Laboratory Results 03/23/22 03/22/22 03/22/22 Range/Units 00:00 22:06 21:31 WBC (4.0-10.5) K/mm3 RBC (4.1-5.4) M/mm3 Hgb (12.0-16.0) gm/dl Hct (35-47) % MCV (78-100) fl MCH (26-32) pg MCHC (32-36) g/dl RDW (11.5-14.0) % Plt Count (150-450) K/mm3 MPV (7.5-11.0) fl Gran % (36.0-66.0) % Eos # (Auto) (0-0.5) Absolute Lymphs (auto) (1.0-4.6) Absolute Monos (auto) (0.0-1.3) Lymphocytes % (24.0-44.0) % Monocytes % (0.0-12.0) % Eosinophils % (0.00-5.0) % Basophils % (0.0-0.4) % Absolute Granulocytes (1.4-6.9) Basophils # (0-0.4) D-Dimer 487 (215-500) ng/mL Sodium (137-145) mmol/L Potassium (3.5-5.1) mmol/L Chloride (98-107) mmol/L Carbon Dioxide (22-30) mmol/L Anion Gap (5-15) MEQ/L BUN (7-17) mg/dL Creatinine (0.52-1.04) mg/dL Estimated GFR ML/MIN Glucose (74-106) mg/dL Calcium (8.4-10.2) mg/dL Total Bilirubin (0.2-1.3) mg/dL AST (14-36) U/L ALT (0-35) U/L Alkaline Phosphatase (38-126) U/L Serum Total Protein (6.3-8.2) g/dL Albumin (3.5-5.0) g/dL Urinalys Dipstick Clnc MAIN LAB Urine Color YELLOW (YELLOW) Urine Appearance CLEAR (CLEAR) Urine pH 6.0 (5-6) Ur Specific [place] 1.020 (1.005-1.025) POC Urine Protein Conf NEGATIVE (Negative) Urine Ketones NEGATIVE (NEGATIVE) Urine Nitrite NEGATIVE (NEGATIVE) Urine Bilirubin NEGATIVE (NEGATIVE) Urine Urobilinogen 0.2 (0-1) mg/dL Urine Leukocytes SMALL (NEGATIVE) Urine WBC (Auto) 16-25 (0-5) /HPF Urine RBC (Auto) 3-5 (0-2) /HPF U Epithel Cells (Auto) RARE (FEW) /HPF Urine Bacteria (Auto) RARE (NEGATIVE) /HPF Urine RBC SMALL (0-5) Bernardo/ul Other Casts (Auto) NEGATIVE (NEGATIVE) /LPF Urine Mucus (Auto) SLIGHT (NEGATIVE) /HPF Ur Culture Indicated? YES Urine Glucose NEGATIVE (NEGATIVE) mg/dL Influenza Type A Ag NEGATIVE (NEGATIVE) Influenza Type B Ag NEGATIVE (NEGATIVE) RSV (PCR) NEGATIVE (Negative) SARS-CoV-2 (PCR) NEGATIVE (NEGATIVE) 03/22/22 03/22/22 Range/Units 21:31 21:31 WBC 9.1 (4.0-10.5) K/mm3 RBC 5.02 (4.1-5.4) M/mm3 Hgb 14.7 (12.0-16.0) gm/dl Hct 45.0 (35-47) % MCV 89.6 (78-100) fl MCH 29.3 (26-32) pg MCHC 32.7 (32-36) g/dl RDW 15.0 H (11.5-14.0) % Plt Count 223 (150-450) K/mm3 MPV 10.2 (7.5-11.0) fl Gran % 80.7 H (36.0-66.0) % Eos # (Auto) 0.11 (0-0.5) Absolute Lymphs (auto) 1.16 (1.0-4.6) Absolute Monos (auto) 0.46 (0.0-1.3) Lymphocytes % 12.7 L (24.0-44.0) % Monocytes % 5.0 (0.0-12.0) % Eosinophils % 1.2 (0.00-5.0) % Basophils % 0.4 (0.0-0.4) % Absolute Granulocytes 7.35 H (1.4-6.9) Basophils # 0.04 (0-0.4) D-Dimer (215-500) ng/mL Sodium 141 (137-145) mmol/L Potassium 3.9 (3.5-5.1) mmol/L Chloride 106 (98-107) mmol/L Carbon Dioxide 26 (22-30) mmol/L Anion Gap 13.0 (5-15) MEQ/L BUN 16 (7-17) mg/dL Creatinine 1.19 H (0.52-1.04) mg/dL Estimated GFR 46.9 ML/MIN Glucose 100 (74-106) mg/dL Calcium 9.5 (8.4-10.2) mg/dL Total Bilirubin 0.70 (0.2-1.3) mg/dL AST 23 (14-36) U/L ALT 12 (0-35) U/L Alkaline Phosphatase 93 (38-126) U/L Serum Total Protein 6.5 (6.3-8.2) g/dL Albumin 3.9 (3.5-5.0) g/dL Urinalys Dipstick Clnc Urine Color (YELLOW) Urine Appearance (CLEAR) Urine pH (5-6) Ur Specific [place] (1.005-1.025) POC Urine Protein Conf (Negative) Urine Ketones (NEGATIVE) Urine Nitrite (NEGATIVE) Urine Bilirubin (NEGATIVE) Urine Urobilinogen (0-1) mg/dL Urine Leukocytes (NEGATIVE) Urine WBC (Auto) (0-5) /HPF Urine RBC (Auto) (0-2) /HPF U Epithel Cells (Auto) (FEW) /HPF Urine Bacteria (Auto) (NEGATIVE) /HPF Urine RBC (0-5) Bernardo/ul Other Casts (Auto) (NEGATIVE) /LPF Urine Mucus (Auto) (NEGATIVE) /HPF Ur Culture Indicated? Urine Glucose (NEGATIVE) mg/dL Influenza Type A Ag (NEGATIVE) Influenza Type B Ag (NEGATIVE) RSV (PCR) (Negative) SARS-CoV-2 (PCR) (NEGATIVE) - Progress Progress: improved, re-examined, unchanged Air Movement: good Progress Note: 03/22/22 23:00 Chest x-ray shows no acute cardiopulmonary process. 03/23/22 00:08 Patient states that she is feeling much better at this time. Blood Culture(s) Obtained: Yes Counseled pt/family regarding: lab results, diagnosis, need for follow-up, rad results - Departure Departure Disposition: Home Clinical Impression: Weakness, UTI (urinary tract infection) Condition: Stable Critical Care Time: No Referrals: SAVANAH MILIAN [Primary Care Provider] - Follow up/PCP as directed Additional Instructions: Drink plenty of fluids. Take your medication as prescribed. Prescriptions: Ciprofloxacin [Cipro 500 MG] 500 mg PO BID #14 tablet
[2022-03-23 00:38] LABS: Appearance CLEAR (CLEAR); Bilirubin NEGATIVE (NEGATIVE); Glucose NEGATIVE (NEGATIVE); Ketones NEGATIVE (NEGATIVE); RBC SMALL Ery/ul (0-5)
[2022-03-23 00:39] LABS: Dipstick done @ ? MAIN LAB; Nitrite NEGATIVE (NEGATIVE); Protein,Urine Dip NEGATIVE (Negative); Urobilinogen 0.2 mg/dL (0-1)
[2022-03-23 00:44] LABS: Bacteria RARE /HPF (NEGATIVE); Epithelial Cells RARE /HPF (FEW); Mucus SLIGHT /HPF (NEGATIVE)
[2022-03-23 00:51] LABS: Urine Cultured Indicated? YES
[2022-03-23] MEDS ORDERED: Cipro 500 MG PO ONE (01:02)
[2022-03-23] MEDS ORDERED: Cipro 500 MG ONE (01:05)
[2022-03-23 01:16] VITALS: BP 119/68; PULSE 92
== END 2022-03-23 02:04 | disposition home or self-care (01) ==
LOC: ED 20:12
DX: N39.0 Urinary tract infection, site not specified (principal); R53.1 Weakness; R06.02 Shortness of breath; I10 Essential (primary) hypertension; E78.5 Hyperlipidemia, unspecified; I69.354 Hemiplegia and hemiparesis following cerebral infarction affecting left non-dominant side; Z72.0 Tobacco use; Z79.899 Other long term (current) drug therapy
CPT/HCPCS: 0241U; 36000; 36415; 71045; 80053; 81015; 85025; 85379; 87077; 87086; 87186; 93005; 99284; A9270-GY